=== PATIENT | male | born 1965 | race American Indian/Alaskan Native ===

== ENCOUNTER 2017-11-25 12:50 | Emergency (ER) | payer MEDICARE, MEDICAID ==
[2017-11-25 12:50] VITALS: BMI 24.1
[2017-11-25 12:59] VITALS: BP 143/72; PULSE 88; RESP 20; TEMP 98.2; O2SAT 96
[2017-11-25] MEDS ORDERED: oxyCODONE 5 mg Immediate Release Tab PO ONE (13:08)
--- NOTE | 2017-11-25 13:13 | C.PDOC ---
History Of Present Illness Patient reports slamming his left hand in a car door several hours ago. No other injury. Complains of pain to the L 4th and 5th metacarpals. States that he had a previous fracture to his left hand over a decade ago. He has not taken any pain medication yet. Time Seen by Provider: 11/25/17 12:57 Chief Complaint (Nursing): Upper Extremity Problem/Injury History Per: Patient History/Exam Limitations: no limitations Onset/Duration Of Symptoms: Hrs Current Symptoms Are (Timing): Still Present Hands/Wrist (Pic): 1 - Pain Exacerbating Factor(s): Movement Past Medical History Vital Signs: Last Vital Signs Temp 98.2 F 11/25/17 12:50 Pulse 88 11/25/17 12:50 Resp 20 11/25/17 12:50 BP 143/72 11/25/17 12:50 Pulse Ox 96 11/25/17 14:05 - Medical History PMH: CAD, CHF, COPD, HIV, HTN, End Stage Renal Disease, Chronic Kidney Disease, Sleep Apnea - [facility] Procedures MAGNETIC RESONANCE IMAGING OF BRAIN AND BRAIN STEM (06/22/01) MRI OF OTHER AND UNSPECIFIED SITES (06/22/01) Family History: States: Unknown Family Hx - Social History Hx Tobacco Use: Yes Hx Alcohol Use: No Hx Substance Use: No - Immunization History Hx Tetanus Toxoid Vaccination: No Hx Influenza Vaccination: No Hx Pneumococcal Vaccination: No Review Of Systems Except As Marked, All Systems Reviewed And Found Negative. Constitutional: Negative for: Fever Cardiovascular: Negative for: Chest Pain Respiratory: Negative for: Cough, Shortness of Breath Gastrointestinal: Negative for: Nausea, Vomiting, Abdominal Pain Musculoskeletal: Positive for: Hand Pain. Negative for: Arm Pain Skin: Negative for: Rash, Bruising Physical Exam - Physical Exam Appears: Well, Non-toxic, No Acute Distress Skin: Normal Color, Warm, Dry, No Rash, No Ecchymosis Head: Atraumatic Eye(s): bilateral: Normal Inspection Nose: Normal Oral Mucosa: Moist Cardiovascular: Rhythm Regular Respiratory: Normal Breath Sounds Gastrointestinal/Abdominal: Normal Exam Extremity: No Normal ROM (ROM of fingers limited secondary to pain), Tenderness (Overlying 4th and 5th metacarpals), Capillary Refill (<2 seconds), No Deformity , Swelling (L hand) Pulses: Left Radial: Normal, Right Radial: Normal Neurological/Psych: Oriented x3 Gait: Steady ED Course And Treatment O2 Sat by Pulse Oximetry: 96 - Other Rad L hand X-Ray: Read By Radiologist Interpretation: Accession No. : [id number]. Patient Name / ID : REYNALDO TOVAR / [id number]. Exam Date : 11/25/2017 13:09:50 ( Approved ). Study Comment : Sex / Age : M / 52Y. Creator : Ivan Malone MD. Dictator : Ivan Malone MD. Bed Laster : Fish Grader : Ivan Malone MD. Approver2 : Report Date : 11/25/2017 13:19:54. My Comment : . PROCEDURE: Left Hand Radiographs. HISTORY: hand injury. COMPARISON: None. FINDINGS: BONES: Distal 5th metacarpal fracture with dorsal apex angulation. JOINTS: Unremarkable. SOFT TISSUES: Regional soft tissue swelling in the 5th metacarpal. OTHER FINDINGS: None. IMPRESSION: Angulated fracture of the 5th metacarpal as described above. Medical Decision Making Medical Decision Making: Patient given 5-300mg tab Vicodin for pain. Of note, patient states that he cannot take tylenol or motrin, but specifically requested Vicodin as "that's the only thing that works". XR done showing angulated L 5th metacarpal fracture. Orthoglass L ulnar gutter splint placed by tech. Patient neurovascularly intact before and after procedure. 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 Disposition - Disposition Referrals: Sharon Quintanilla MD [Staff Provider] - Disposition: HOME/ ROUTINE Disposition Time: 14:00 Condition: FAIR Additional Instructions: Please followup with the hand surgeon. Return to the ED for any new or worsening symptoms. Keep splint clean and dry. Prescriptions: Acetaminophen/Hydrocodone Bi [Vicodin 300 mg-5 mg] 1 tab PO Q6H PRN #8 tab PRN Reason: Pain, Severe (8-10) Instructions: Hand Fracture (DC) Forms: [employer] ([place]) - Clinical Impression Clinical Impression: Fracture of fifth metacarpal bone of left hand
[2017-11-25] MEDS ORDERED: oxyCODONE 5 mg Immediate Release Tab ONE (13:16)
--- NOTE | 2017-11-25 13:21 | RAD ---
PROCEDURE: Left Hand Radiographs. HISTORY: hand injury COMPARISON: None. FINDINGS: BONES: Distal 5th metacarpal fracture with dorsal apex angulation. JOINTS: Unremarkable. SOFT TISSUES: Regional soft tissue swelling in the 5th metacarpal. OTHER FINDINGS: None. IMPRESSION: Angulated fracture of the 5th metacarpal as described above.
[2017-11-25] MEDS ORDERED: Hydrocodone/Acetaminophen 5 mg /300 mg Tab PO STA (13:24)
[2017-11-25] MEDS ORDERED: Hydrocodone/Acetaminophen 5 mg /300 mg Tab PO ONE (13:25)
== END 2017-11-25 14:19 | disposition home or self-care (01) ==
LOC: C.ER 12:50
DX: S62.307A Unspecified fracture of fifth metacarpal bone, left hand, initial encounter for closed fracture (principal); X58.XXXA Exposure to other specified factors, initial encounter; I25.10 Atherosclerotic heart disease of native coronary artery without angina pectoris; I50.9 Heart failure, unspecified; I12.0 Hypertensive chronic kidney disease with stage 5 chronic kidney disease or end stage renal disease; N18.6 End stage renal disease; Z72.0 Tobacco use

== ENCOUNTER 2018-02-16 13:05 | Emergency (ER) | payer MEDICARE, MEDICAID ==
[2018-02-16 13:05] VITALS: BMI 24.1
[2018-02-16 13:22] VITALS: BP 131/78; PULSE 88; RESP 18; TEMP 98.2; O2SAT 97
--- NOTE | 2018-02-16 13:31 | C.PDOC ---
History Of Present Illness 52 year old male patient presents to the ER with c/o unhealed left hand. Patient reports he fractured his hand, received a cast and removed it x3 weeks ago by Dr. Long. Patient notes his hand has not yet healed and when he applied pressure this morning from waking up, the pain felt worse. Patient also notes he was instructed to go to PT, but he has yet to f/u. Denies weakness and numbness. Time Seen by Provider: 02/16/18 13:22 Chief Complaint (Nursing): Upper Extremity Problem/Injury History Per: Patient History/Exam Limitations: no limitations Onset/Duration Of Symptoms: Days (x3 weeks) Past Medical History Reviewed: Historical Data, Nursing Documentation, Vital Signs Vital Signs: Last Vital Signs Temp 98.2 F 02/16/18 13:16 Pulse 88 02/16/18 13:16 Resp 18 02/16/18 13:16 BP 131/78 02/16/18 13:16 Pulse Ox 97 02/16/18 13:32 - Medical History PMH: CAD, CHF, COPD, HIV, HTN, End Stage Renal Disease (dialysis), Chronic Kidney Disease, Sleep Apnea - [facility] Procedures MAGNETIC RESONANCE IMAGING OF BRAIN AND BRAIN STEM (06/22/01) MRI OF OTHER AND UNSPECIFIED SITES (06/22/01) Family History: States: Unknown Family Hx - Social History Hx Tobacco Use: Yes Hx Alcohol Use: No Hx Substance Use: No - Immunization History Hx Tetanus Toxoid Vaccination: No Hx Influenza Vaccination: No Hx Pneumococcal Vaccination: No Review Of Systems Musculoskeletal: Positive for: Hand Pain Neurological: Negative for: Weakness, Numbness Physical Exam - Physical Exam Appears: Non-toxic, No Acute Distress Skin: Normal Color, Warm, Dry Respiratory: No Accessory Muscle Use, Other (speaking in full sentences) Extremity: Tenderness (on 4th and 5th metacarpals ), Capillary Refill (<2 sec), No Swelling Extremity: Left: Painful To Bear Weight (hand) Pulses: Left Radial: Normal, Right Radial: Normal Neurological/Psych: Oriented x3, Normal Speech, No Other (gross focal deficits) ED Course And Treatment O2 Sat by Pulse Oximetry: 97 (RA) Pulse Ox Interpretation: Normal Progress Note: Impression: improperly healed hand fracture. Plans: -- Ultram. -- XR left hand. Reassess: Patient is resting comfortably. NAD. Patient is tolerating PO. Patient is instructed to f/u with PT as soon as possible. Disposition - Disposition Additional Instructions: Rest , ice and elevate the area. Follow up with your bone doctor in 1 -2 days. Instructions: Hand Fracture (DC) Forms: [facility] (Mexican) - PA / [employer] / Resident Statement MD/ has reviewed & agrees with the documentation as recorded. - Scribe Statement The provider has reviewed the documentation as recorded by the Scribmadeline Cervantes Do All medical record entries made by the Scribe were at my direction and personally dictated by me. I have reviewed the chart and agree that the record accurately reflects my personal performance of the history, physical exam, medical decision making, and the department course for this patient. I have also personally directed, reviewed, and agree with the discharge instructions and disposition.
--- NOTE | 2018-02-16 13:32 | C.PDOC ---
History Of Present Illness 52 year old male patient presents to the ER with c/o pain to the left hand for 1.5 months. Patient reports he fractured his hand on 11/25/17, a cast was applied and removed [address] Ho[address] This morning he applied pressure on his hand when pushing off his bed and it exacerbated the pain. Pt is requesting percocet for the pain. Patient also notes he was instructed to f/u with PT but has yet to do so. Left hand dominant. Denies weakness and numbness. Time Seen by Provider: 02/16/18 13:22 Chief Complaint (Nursing): Upper Extremity Problem/Injury History Per: Patient History/Exam Limitations: no limitations Onset/Duration Of Symptoms: Days (x3 weeks) Current Symptoms Are (Timing): Still Present Past Medical History Reviewed: Historical Data, Nursing Documentation, Vital Signs Vital Signs: Last Vital Signs Temp 98.2 F 02/16/18 13:16 Pulse 88 02/16/18 13:16 Resp 18 02/16/18 13:16 BP 131/78 02/16/18 13:16 Pulse Ox 97 02/16/18 15:22 - Medical History PMH: CAD, CHF, COPD, HIV, HTN, End Stage Renal Disease (dialysis), Chronic Kidney Disease, Sleep Apnea - [facility] Procedures MAGNETIC RESONANCE IMAGING OF BRAIN AND BRAIN STEM (06/22/01) MRI OF OTHER AND UNSPECIFIED SITES (06/22/01) Family History: States: Unknown Family Hx - Social History Hx Tobacco Use: Yes Hx Alcohol Use: No Hx Substance Use: No - Immunization History Hx Tetanus Toxoid Vaccination: No Hx Influenza Vaccination: No Hx Pneumococcal Vaccination: No Review Of Systems Musculoskeletal: Positive for: Hand Pain Neurological: Negative for: Weakness, Numbness Physical Exam - Physical Exam Appears: Non-toxic, No Acute Distress Skin: Normal Color, Warm, Dry Head: Atraumatic, Normacephalic Nose: Normal Oral Mucosa: Moist Chest: Symmetrical Respiratory: No Accessory Muscle Use, Other (speaking in full sentences) Extremity: No Normal ROM ( secondary to pain), Tenderness (TTP for the 5th metacarpal), Capillary Refill (<2 sec), No Swelling Pulses: Left Radial: Normal, Right Radial: Normal Neurological/Psych: Oriented x3, Normal Speech, No Other (focal deficits) ED Course And Treatment O2 Sat by Pulse Oximetry: 97 (RA) Pulse Ox Interpretation: Normal - Other Rad L Hand XR X-Ray: Read By Radiologist Interpretation: Accession No. : [id number]. Patient Name / ID : REYNALDO TOVAR / [id number]. Exam Date : 02/16/2018 13:41:26 ( Approved ). Study Comment : Sex / Age : M / 52Y. Creator : Denise Ochoa V. Dictator : Denise Ochoa V. Rd Scientist : Digital Tech : Denise Ochoa V. Approver2 : Report Date : 02/16/2018 15:09:36. My Comment : . PROCEDURE: Left Hand Radiographs. HISTORY: trauma. COMPARISON: I 11/25/2017. FINDINGS: BONES: There is interval callus formation consistent with healing fracture of the prior distal metacarpal metaphyseal fracture site. Volar apical angulation deformity persists. JOINTS: Osteophytic changes- all distal interphalangeal joints and 1st carpal metacarpal joint. SOFT TISSUES: Normal. OTHER FINDINGS: None. IMPRESSION: Healing fracture 5th distal metacarpal metaphysis with dorsal apical angulation residual deformity. Progress Note: Impression: improperly healed hand fracture. Plans: -- Ultram - refused. -- XR left hand. Pt had ulna gutter velcro splint in his backpack. Pt left prior to splinting and re-evaluation. Disposition - Disposition Disposition: HOME/ ROUTINE Disposition Time: 13:30 Condition: STABLE Additional Instructions: Rest , ice and elevate the area. Follow up with your bone doctor in 1 -2 days. Prescriptions: Naproxen [Naprosyn] 1 tab PO BID PRN #20 tab PRN Reason: Pain Instructions: Hand Fracture (DC) Forms: [employer] (Irish) - Clinical Impression Clinical Impression: Hand pain - PA / [employer] / Resident Statement /DO has reviewed & agrees with the documentation as recorded. - Scribe Statement The provider has reviewed the documentation as recorded by the Elis Cervantes Do All medical record entries made by the Elis were at my direction and personally dictated by me. I have reviewed the chart and agree that the record accurately reflects my personal performance of the history, physical exam, medical decision making, and the department course for this patient. I have also personally directed, reviewed, and agree with the discharge instructions and disposition.
--- NOTE | 2018-02-16 15:10 | RAD ---
PROCEDURE: Left Hand Radiographs. HISTORY: trauma COMPARISON: I 11/25/2017 FINDINGS: BONES: There is interval callus formation consistent with healing fracture of the prior distal metacarpal metaphyseal fracture site. Volar apical angulation deformity persists. JOINTS: Osteophytic changes- all distal interphalangeal joints and 1st carpal metacarpal joint. SOFT TISSUES: Normal. OTHER FINDINGS: None. IMPRESSION: Healing fracture 5th distal metacarpal metaphysis with dorsal apical angulation residual deformity.
== END 2018-02-16 14:01 | disposition home or self-care (01) ==
LOC: C.ER 13:05
DX: M79.642 Pain in left hand (principal)

== ENCOUNTER 2018-05-07 10:19 | Day surgery (SDC) | payer MEDICARE, MEDICAID ==
[2018-03-12 09:56] VITALS: BMI 24.1
[2018-05-07 11:15] LABS: HEMOGLOBIN 11.2 g/dL (12.0-18.0); MEAN CELL VOLUME 98.9 fL (80.0-94.0); MEAN CORPUSCULAR HEMOGLOBIN 33.3 pg (27.0-31.0); MEAN CORPUSCULAR HGB CONC 33.7 g/dL (33.0-37.0); MEAN PLATELET VOLUME 8.9 fL (7.2-11.7); RBC 3.36 Mil/uL (4.40-5.90); RED CELL DISTRIBUTION WIDTH 16.6 % (11.5-14.5); WHITE BLOOD COUNT 6.5 K/uL (4.8-10.8)
[2018-05-07 11:25] LABS: INR 1.2; PROTHROMBIN TIME 13.2 SECONDS (9.7-12.2)
--- NOTE | 2018-05-07 11:29 | CP.SDSHP ---
Same Day Surgery H & P - History Proposed Procedure: Right thoracentesis Pre-Op Diagnosis: Right pleural effusion - Allergies Allergies: Allergies No Known Allergies Allergy (Verified 03/12/18 10:12) - Physical Exam Mental Status: Alert & Oriented x3 - Impression Impression: Pt with small right effusion that appears complex on US. PLan US guided thoracentesis. Pt. Evaluated Today:Candidate for Anesthesia & Procedure: No Short Stay Discharge - Short Stay Discharge Admitting Diagnosis/Reason for Visit: DX: [id number]/Z21/J91.8 Disposition: HOME/ ROUTINE Referrals: Karen Colunga MD [Primary Care Provider] -
--- NOTE | 2018-05-07 11:30 | PCM.SURG1 ---
Surgeon's Initial Post Op Note - Surgeon's Notes Surgeon: Rui Durham MD Bankruptcy Law Specialist: NONE Type of Anesthesia: Local Pre-Operative Diagnosis: Right pleural effusion Operative Findings: US showed small right effusion Post-Operative Diagnosis: Right pleural effusion Operation Performed: US guided thoracentesis. A drainage catheter was advanced into the pleural space. NO fluid could be aspirated. Fluid is viscous. Specimen/Specimens Removed: none Estimated Blood Loss: EBL {In ML}: 0 Blood Products Given: N/A Drains Used: No Drains Post-Op Condition: Good Date of Surgery/Procedure: 05/07/18 Time of Surgery/Procedure: 11:25
[2018-05-07 11:49] LABS: CALCIUM 9.2 mg/dl (8.6-10.4)
--- NOTE | 2018-05-07 14:09 | US ---
PROCEDURE: Date of procedure: 05/07/2018 Procedure: 1. Ultrasound-guided Right thoracentesis, CPT 37927 Medications:8cc 1% Lidocaine HISTORY: Right pleural effusion TECHNIQUE: Following informed consent ,the Patients' right chest was marked. Procedure time-out was called, and the patient was placed in the sitting position and limited ultrasound showed a small right effusion which appear complex. There is also thickening of the pleura. The patient's right back was prepped and draped in the usual sterile fashion. After the skin was anesthetized with lidocaine, a drainage catheter was advanced under ultrasound guidance into the pleural space. There was not no return of pleural fluid. Catheter was reposition under ultrasound. Again no fluid was aspirated. A Xeroform dressing was applied. IMPRESSION: Ultrasound showed a small right pleural effusion. Under ultrasound guidance a catheter was advanced into the pleural space. No fluid could be aspirated. Fluid likely proteinaceous with increased viscosity.
== END 2018-05-07 12:20 | disposition home or self-care (01) ==
LOC: C.SPRAD 10:19
PROVIDERS: ATTEND Internal Medicine Endocrinology, Diabetes & Metabolism
DX: J90 Pleural effusion, not elsewhere classified (principal)